=== PATIENT | female | born 1960 | race Caucasian/White ===

== ENCOUNTER 2018-03-02 06:06 | Emergency (ER) | payer BC, OTHER ==
[~2018-03-02] VITALS: Ht 172.7 cm; Wt 88.5 kg
[2018-03-02] MEDS ORDERED: CLONAZEPAM 1 MG1 M1 PO (06:25)
[2018-03-02] MEDS ORDERED: TIZANIDINE HCL2 M1 PO (06:26)
[2018-03-02] MEDS ORDERED: NAPROSYN500 MG PO (06:47)
== END 2018-03-02 07:27 | disposition home or self-care (01) ==
LOC: ER 06:06
DX: G56.01 Carpal tunnel syndrome, right upper limb (principal); G43.909 Migraine, unspecified, not intractable, without status migrainosus; Z88.5 Allergy status to narcotic agent

== ENCOUNTER 2018-10-13 23:02 | Emergency (ER) | payer BC, OTHER ==
[~2018-10-13] VITALS: Ht 172.7 cm; Wt 79.4 kg
[~2018-10-13 23:02] MED LIST: CLONAZEPAM 1 MG1 M1 PO; NAPROSYN500 MG PO; TIZANIDINE HCL2 M1 PO
[2018-10-13 23:57] LABS: ABSOLUTE NEUTROPHILS 6.8 thou/uL (1.4-8.2); BASOPHILS 0.8 % (0.0-2.0); EOSINOPHILS 2.5 % (0.0-3.0); HEMOGLOBIN 13.3 gm/dL (12.0-15.0); LYMPHOCYTES 27.3 % (24.0-44.0); MCHC 33.1 g/dL (28.0-37.0); MCV 87.5 fL (80.0-100.0); MONOCYTES 7.9 % (1.0-8.0); PLATELET COUNT 291 thou/uL (150-400); POLYS 61.5 % (36.0-66.0); RBC 4.58 mil/uL (4.20-5.00); RDW 13.3 % (10.5-14.5)
[2018-10-14 00:04] LABS: CALCIUM 9.6 mg/dL (8.5-10.1); CREATININE 0.9 mg/dL (0.6-1.0); POTASSIUM 4.1 mmol/L (3.5-5.1)
[2018-10-14 00:10] LABS: ALBUMIN 3.7 g/dL (3.4-5.0); TOTAL BILIRUBIN 0.2 mg/dL (<0.1-1.0); TOTAL PROTEIN 7.3 g/dL (6.4-8.2)
[2018-10-14 02:39] LABS: URINE BILIRUBIN NEGATIVE (Negative); URINE BLOOD NEGATIVE (Negative); URINE CLARITY CLEAR; URINE COLOR YELLOW; URINE GLUCOSE-RANDOM* NEGATIVE (Negative); URINE KETONES NEGATIVE (Negative); URINE LEUKOCYTES-REFLEX NEGATIVE (Negative); URINE NITRITE-REFLEX NEGATIVE (Negative); URINE PROTEIN (DIPSTICK) NEGATIVE (Negative); URINE UROBILINOGEN 0.2 E.U./dl (0.2-1.0)
[2018-10-14] MEDS ORDERED: ZOFRAN ODT4 MG PO (02:48)
[2018-10-14] MEDS ORDERED: CARAFATE 1 GM TA1 G1 PO (02:48)
[2018-10-14] MEDS ORDERED: BENTYL 20 MG TA20 M1 PO (02:48)
[2018-10-14] MEDS ORDERED: PROTONIX40 M1 PO (02:48)
[2018-10-14 03:15] VITALS: BP 144/82
== END 2018-10-14 03:15 | disposition home or self-care (01) ==
LOC: ER 23:02
PROVIDERS: Emergency Medicine
DX: R10.13 Epigastric pain (principal); R11.10 Vomiting, unspecified; R50.9 Fever, unspecified; R05 Cough; Z88.5 Allergy status to narcotic agent

== ENCOUNTER 2018-10-16 11:16 | Emergency (ER) | payer BC, OTHER ==
[~2018-10-16] VITALS: Ht 172.7 cm; Wt 88.5 kg
[~2018-10-16 11:16] MED LIST changes: +BENTYL 20 MG TA20 M1 PO; +CARAFATE 1 GM TA1 G1 PO; +PROTONIX40 M1 PO; +ZOFRAN ODT4 MG PO
[2018-10-16 12:01] LABS: ABSOLUTE NEUTROPHILS 8.1 thou/uL (1.4-8.2); BASOPHILS 0.5 % (0.0-2.0); HEMATOCRIT 43.8 % (37.0-47.0); HEMOGLOBIN 14.5 gm/dL (12.0-15.0); LYMPHOCYTES 16.6 % (24.0-44.0); MCH 29.1 pg (26.0-34.0); MCHC 33.2 g/dL (28.0-37.0); MCV 87.7 fL (80.0-100.0); MONOCYTES 7.5 % (1.0-8.0); PLATELET COUNT 315 thou/uL (150-400); POLYS 73.4 % (36.0-66.0); RBC 4.99 mil/uL (4.20-5.00); RDW 13.5 % (10.5-14.5); WBC 11.1 thou/uL (4.0-11.0)
[2018-10-16 12:07] LABS: CALCIUM 10.1 mg/dL (8.5-10.1); CREATININE 1.1 mg/dL (0.6-1.0); POTASSIUM 3.8 mmol/L (3.5-5.1)
[2018-10-16 12:13] LABS: ALBUMIN 3.6 g/dL (3.4-5.0); TOTAL BILIRUBIN 0.4 mg/dL (<0.1-1.0); TOTAL PROTEIN 7.9 g/dL (6.4-8.2)
[2018-10-16] MEDS ORDERED: ZOFRAN 4 MG ORAL4 MG PO (12:58)
[2018-10-16] MEDS ORDERED: FLAGYL500 M1 PO (12:58)
[2018-10-16] MEDS ORDERED: ULTRAM 50MG TAB50 MG PO (12:58)
[2018-10-16] MEDS ORDERED: CIPRO500 MG PO (12:58)
[2018-10-16 13:08] VITALS: BP 123/90
== END 2018-10-16 13:45 | disposition home or self-care (01) ==
LOC: ER 11:16
PROVIDERS: Nurse Practitioner Family
DX: K57.32 Diverticulitis of large intestine without perforation or abscess without bleeding (principal); K52.9 Noninfective gastroenteritis and colitis, unspecified; Z88.5 Allergy status to narcotic agent

== ENCOUNTER 2018-10-29 18:47 | Inpatient (IN) | payer BC, OTHER ==
[~2018-10-29] VITALS: Ht 172.7 cm; Wt 103.9 kg
[~2018-10-29 18:47] MED LIST changes: +CIPRO500 MG PO; +FLAGYL500 M1 PO; +ULTRAM 50MG TAB50 MG PO; +ZOFRAN 4 MG ORAL4 MG PO
[2018-10-29 18:48] VITALS: BP 140/96
[2018-10-29 19:13] LABS: ABSOLUTE NEUTROPHILS 11.5 thou/uL (1.4-8.2); BASOPHILS 0.6 % (0.0-2.0); EOSINOPHILS 1.3 % (0.0-3.0); HEMATOCRIT 45.7 % (37.0-47.0); HEMOGLOBIN 15.3 gm/dL (12.0-15.0); MCHC 33.4 g/dL (28.0-37.0); MCV 86.7 fL (80.0-100.0); MONOCYTES 5.5 % (1.0-8.0); PLATELET COUNT 325 thou/uL (150-400); POLYS 78.6 % (36.0-66.0); RBC 5.28 mil/uL (4.20-5.00); RDW 13.7 % (10.5-14.5); WBC 14.6 thou/uL (4.0-11.0)
[2018-10-29 19:22] LABS: CALCIUM 10.2 mg/dL (8.5-10.1); POTASSIUM 4.3 mmol/L (3.5-5.1)
[2018-10-29 19:28] LABS: ALBUMIN 4.1 g/dL (3.4-5.0); TOTAL BILIRUBIN 0.4 mg/dL (<0.1-1.0); TOTAL PROTEIN 8.5 g/dL (6.4-8.2)
[2018-10-29 19:31] VITALS: BP 140/96
[2018-10-29 20:31] VITALS: BP 140/96
[2018-10-29 21:00] VITALS: BP 126/88
--- NOTE | 2018-10-30 04:21 | NUR ---
ASSUMED CARE OF PT AT 2030HRS. PT AOX4 AND WAS ORIENTED TO TO UNIT AND ROOM. PT WAS ABLE TO ANSWER ALL ADMISSION QUESTIONS. PT COMPLAINED OF N/V AND ABD PAIN. ORDERS WERE RECEIVED TO TREAT. THE NIGHT PROGRESSED, PAIN WAS DIFFICULT TO CONTROL. FAMILY IS AT BEDSIDE AND IS SUPPORTIVE. PAIN MEDS GIVE TEMPORARY RELIEF PT HAS HIGH TOLERENCE FOR PAIN MEDS. NO OTHER S/S OF ACUTE DISTRESS. WILL CONTINUE TO MONITOR.
[2018-10-30 04:46] VITALS: BP 133/85
[2018-10-30 05:40] LABS: MCH 28.6 pg (26.0-34.0); MCHC 32.7 g/dL (28.0-37.0); MCV 87.6 fL (80.0-100.0); RBC 4.65 mil/uL (4.20-5.00); RDW 13.7 % (10.5-14.5); WBC 12.2 thou/uL (4.0-11.0)
[2018-10-30 05:44] LABS: HEMATOCRIT 40.8 % (37.0-47.0); HEMOGLOBIN 13.3 gm/dL (12.0-15.0)
[2018-10-30 05:52] LABS: CALCIUM 9.1 mg/dL (8.5-10.1); POTASSIUM 3.6 mmol/L (3.5-5.1)
[2018-10-30 07:47] VITALS: BP 123/81
--- NOTE | 2018-10-30 14:45 | NUR ---
PT ADMITTED RELATED TO N/V, ABD PAIN. CM REVIEWED CHART AND SPOKE WITH CARE TEAM. CM MET WITH PT, SPOUSE, AND HER MOTHER AT BEDSIDE THIS DAY. PT INDICATED THEY LIVE IN AN APARTMENT WITH NO STEPS TO ENTER AND NO STEPS INSIDE. 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 PT INDICATED NO DME OF HH HX. PT INDICATED HER PCP RETIRED BIT THAT SHE HAS SOME NAMES OF PHYSICIANS TO LOOK INTO. PT INDICATE SHE PLANS TO RETURN HOME ONCE MEDICALLY STABLE. CM TO FOLLOW INDICATED WITH DC PLANNING.
[2018-10-30 15:07] VITALS: BP 128/75
[2018-10-30 19:59] VITALS: BP 141/98
--- NOTE | 2018-10-31 03:56 | NUR ---
PATIENT ASSESSED AND IS ALERT X 4. SKIN WARM AND DRY. RESP EVEN AND UNLABORED. UP AD CLAIRE IN ROOM WITH 1 PERSON ASSISTANCE. DENIES ANY NAUSEA. TAKEN MEDS THEN HAD A EMESIS AND THREW UP HER MEDS. ZOFRAN GIVEN PER REQUEST. VOIDS WELL . IV SITE HEALTHY AND HAS A IV FLUIDS INFUSING WELL. LUNGS CTA. FAMILY AT BEDSIDE.TAKING CLEAR LIQUIDS WELL. ZOFRAN HAS HELPED FEELING LESS NAUSEASTED. FENTANYL GIVEN FOR PAIN IN LEFT SIDE ABDOMEN WITH GOOD RELIEF. SLEEPING WELL. IV FLUIDS CONTINUE. CONT PAIN CONTROL NAD NAUSEA MEDS WITH ANTIBIOTICS. CONT PLAN OF CARE.
[2018-10-31 04:15] VITALS: BP 147/101
[2018-10-31 04:17] VITALS: BP 145/92
[2018-10-31 04:59] LABS: ABSOLUTE NEUTROPHILS 4.6 thou/uL (1.4-8.2); BASOPHILS 0.6 % (0.0-2.0); EOSINOPHILS 4.1 % (0.0-3.0); HEMATOCRIT 38.9 % (37.0-47.0); HEMOGLOBIN 12.8 gm/dL (12.0-15.0); LYMPHOCYTES 28.5 % (24.0-44.0); MCHC 32.9 g/dL (28.0-37.0); MCV 88.2 fL (80.0-100.0); PLATELET COUNT 243 thou/uL (150-400); POLYS 58.8 % (36.0-66.0); RBC 4.42 mil/uL (4.20-5.00); RDW 13.8 % (10.5-14.5); WBC 7.8 thou/uL (4.0-11.0)
[2018-10-31 05:06] LABS: ALBUMIN 2.9 g/dL (3.4-5.0); CALCIUM 9.1 mg/dL (8.5-10.1); CREATININE 0.8 mg/dL (0.6-1.0); POTASSIUM 3.9 mmol/L (3.5-5.1); TOTAL BILIRUBIN 0.4 mg/dL (<0.1-1.0); TOTAL PROTEIN 6.5 g/dL (6.4-8.2)
[2018-10-31 07:25] VITALS: BP 146/82
[2018-10-31 14:30] VITALS: BP 104/66
--- NOTE | 2018-10-31 17:26 | NUR ---
ASSUMED CARE OF PT AT APPROX 0700. PT IS ALERT AND ORIENTED X4 AND ABLE TO MAINTAIN 02 SAT >90 ON RA. ASSESSMENT CHARTED. PT COMPLAINS OF ABD PAIN THAT IS CONTROLLED WITH PRN PAIN MEDICATION. ENCOURAGED TO DRINK CLEAR LIQUIDS AND SAYS THAT SHE WOULD RATHER NOT. EDUCATED ON IMPORTANCE OF TRYING TO INTRODUCE CLEAR LIQUIDS SLOWLY IN ORDER TO ADVANCE CARE. PT AGREES. TREATED NAUSEA WITH RELIEF AND PT ABLE TO KEEP DOWN PILLS AND SIPS OF CLEAR LIQUIDS THIS AFTERNOON. IV ANTBX CONTINUE. PT AND FAMILY HAVE BEEN UPDATED ON POC. WILL CONTINUE TO MONITOR.
[2018-10-31 19:36] VITALS: BP 115/69
[2018-11-01 03:31] VITALS: BP 126/75
--- NOTE | 2018-11-01 05:39 | NUR ---
Assumed care at 1845. Pt resting in bed. AOX4. VSS. Gave pain medication once for abdmn pain. Denies nausea. Pt tolerating clear liquids well. No identified needs at the moment. Call light within reach. Will continue to monitor.
[2018-11-01 07:43] VITALS: BP 144/71
--- NOTE | 2018-11-01 09:26 | HC ---
[facility] [place] [address] CONSULTATION Name: RENEE MURPHY Room #: 459-P [facility] IN M.R.#: [id number] Admission: 10/29/18 ������������������ Attend Phys: Timoteo Grady MD Discharge: ������������������ Date of : 64 Report #: [id number] THIS REPORT FOR: //name// CC: JUSTIN physician/PCP Timoteo Grady DATE OF SERVICE: 10/30/2018 CONSULTATION REQUESTED BY: Juan Silva DO. REASON FOR CONSULTATION: Unresolving diverticulitis, abdominal pain. HISTORY OF PRESENT ILLNESS: A 58-year-old white woman develops abdominal pain again that has worsened up lately. She has made 3 Emergency Room visits. She was unable to tolerate Cipro and Flagyl because of nausea and vomiting. Notes a previous episode of diverticulitis in the past, but not as severe as the current one. DRUG ALLERGIES: CODEINE AND SEVERE ANAPHYLAXIS. MEDICATIONS: The patient is on treatment with Cipro 500 mg p.o. b.i.d. that has been changed to intravenous 400 mg twice daily and has been on metronidazole 500 mg IV q.i.d. She is on p.r.n. tramadol, ondansetron, naproxen, pantoprazole, Carafate. SOCIAL HISTORY: . 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 REVIEW OF SYSTEMS: Mainly side effects from Cipro and oral Flagyl causing nausea as well as vomiting and worsening abdominal pain. PHYSICAL EXAMINATION: GENERAL: A well-developed, well-nourished woman, not toxic looking, pleasant. VITAL SIGNS: Temperature 97.6, pulse 122, respirations 20, BP 140/96. Height 5 feet 8 inches, weight 190 pounds. HEENMT: Within range. NECK: Supple, no thyromegaly. BREASTS: Deferred. LUNGS: Clear to auscultation. HEART: S1, S2. No gallop or murmur. ABDOMEN: Tender throughout. No rebound tenderness. Bowel sounds decreased. PELVIC AND RECTAL: Deferred. EXTREMITIES: No clubbing, cyanosis. NEUROLOGIC: Grossly within normal limits. LABORATORY DATA: On admission, sodium 142, potassium 4.3, BUN 14, creatinine 1, glucose 114, calcium 10.2, albumin 4.1. WBC 14,800, hemoglobin 15.3 g/dL, [address] [address] CONSULTATION Name: RENEE MURPHY Room #: 459-P [facility] IN .R.#: [id number] Admission: 10/29/18 ������������������ Attend Phys: Timoteo Grady MD Discharge: ������������������ Date of : 64 Report #: [id number] platelets 325,000. RADIOLOGY EVALUATION: A CT scan of abdomen and pelvis revealed atelectasis basis. Sigmoid colon, descending colon injection with thickening, possibly inflammatory. Fatty infiltration of liver with small hepatic cysts. ASSESSMENT: 1. Possible diverticulitis. 2. Side effects from Cipro, Flagyl, nausea, vomiting. 3. CODEINE ALLERGY INTOLERANCE. 4. Hypercalcemia. SUGGESTIONS: Decreased dose of Flagyl to 500 mg b.i.d. Discontinue Cipro. Meropenem 1 1 gram IV every 8 hours. Check ESR and CRP. Dr. Silva, thank you for requesting my suggestions. ��������������������������������������������� <ELECTRONICALLY SIGNED> ���������������������������������������� By: Alex Mendiola MD ��������������������������������������������� 11/01/18 0926 [id number] Alex Mendiola MD /nt
[2018-11-01] MEDS ORDERED: AUGMENTIN 875-1 EACH PO (12:45)
[2018-11-01 13:16] VITALS: BP 144/71
--- NOTE | 2018-11-01 13:37 | NUR ---
Assumed pt care this am, pt had a steady gait and was up at shamika, pt was able to ambulate from bed to toilet, chair then back with no issues. No Nausea or vomiting has been noted nor verbalized by the pt. slowly changed deit from clear to soft to regular, all were well tolerated. Pt has strongly express her desire to go home, family at the bed side. POC followed. DC orders given , instructions given to the pt AND FAMILY ALONG WITH THE PRESCRIPTIONS. IV removed. Pt is now dc.
--- NOTE | 2018-11-01 16:01 | NUR ---
CARE TEAM INDICATED THAT PT IS MEDICALLY STABLE TO DC HOME WITH NO NEEDS THIS DAY. NO OTHER CM INTERVENTION INDICATED CASE CLOSED.
== END 2018-11-01 14:03 | disposition home or self-care (01) | DRG 392 ==
LOC: ER 18:47 → 4W 19:41 → EROBS 19:41 → 4W 20:31 → EROBS 20:32 → 4W 11-01 13:28
PROVIDERS: Emergency Medicine; Nurse Practitioner Acute Care; Nurse Practitioner Family; ADMIT Internal Medicine
DX: K57.20 Diverticulitis of large intestine with perforation and abscess without bleeding (principal); G24.3 Spasmodic torticollis; E46 Unspecified protein-calorie malnutrition; E83.52 Hypercalcemia; Z79.899 Other long term (current) drug therapy; Z90.49 Acquired absence of other specified parts of digestive tract; Z88.5 Allergy status to narcotic agent; Z68.34 Body mass index [BMI] 34.0-34.9, adult
CPT/HCPCS: 10040; 10047

== ENCOUNTER → 2019-02-14 | Outpatient (CLI) | payer BC, OTHER ==
[~2019-02-14] MED LIST changes: +AUGMENTIN 875-1 EACH PO
== END ==
LOC: RAD 13:58
DX: Z12.31 Encounter for screening mammogram for malignant neoplasm of breast (principal)

== ENCOUNTER → 2020-07-07 | Outpatient (CLI) | payer OTHER | LOC: BC 11:17 | PROVIDERS: ATTEND Family Medicine | DX: Z12.31 Encounter for screening mammogram for malignant neoplasm of breast (principal) ==